=== PATIENT | female | born 1950 | race Caucasian/White ===

== ENCOUNTER 2016-09-08 21:06 | Emergency (ER) | payer OTHER ==
[2016-09-08 21:56] VITALS: RESP 16
[2016-09-08 22:40] VITALS: BP 126/92; PULSE 93; TEMP 97.5; O2SAT 95
--- NOTE | 2016-09-08 22:41 | EDPHY ---
H & P Time Seen by Provider: 09/08/16 21:51 HPI/ROS: HPI Right shoulder injury. 66-year-old female by private vehicle with her . This patient was playing tennis on Wednesday. She fell on an outstretched right hand. Since that time she has had continued and worsening right shoulder pain. Pain is aggravated by any passive or active movement. She also reports having some swelling to the right shoulder. She did not hit her head. She denies any neck pain. She denies any altered sensation or weakness in her extremities. No other complaint. She is right-hand dominant. ROS: Constitutional: No fever, no chills. No weakness. Musculoskeletal: No back pain. No neck pain. As above. Skin: No rashes. No lacerations or abrasions. Neurological: No headache. No focal weakness or altered sensation. Past medical history: Hypothyroid, hyperlipidemia, hypertension, x3. Social history: Nonsmoker. Here with her . Has a home in [place] as well as [place]. Is a former physical therapist. Physical Exam: General Appearance: Alert, no distress. This patient is responding to questions appropriately and in full sentences. This patient appears well- hydrated and well-nourished. Head: Normocephalic atraumatic. Face: Facial bones are stable on palpation. Eyes: Pupils equal and round and reactive to light, no pallor or injection. No lid erythema or edema. Right upper extremity exam: Significant for diffuse swelling over the anterior lateral aspects of the glenohumeral joint. No tenderness on palpation of the clavicle on the right side. She has tenderness on palpation of the proximal humerus. Pain with any passive or active movement of the right shoulder. The axillary nerve distribution is intact. The right upper extremity is intact. She describes also having some pain with movement of her elbow. She thinks however this is secondary to movement of the shoulder when she moves her elbow. The right elbow flexes and extends freely without any impingement. There is no pain elicited by pronation and supination. No tenderness over the radial head. No gross swelling of the right elbow. Neurological: Motor sensory function is intact. Cranial nerves are normal. Cerebellar function intact. Skin: Warm and dry, no rashes. No lacerations, abrasions or contusions. Musculoskeletal: Neck is supple and nontender. The trachea is midline. No midline cervical, thoracic, lumbar or sacral tenderness on palpation. No flank tenderness on palpation. Extremities are symmetrical, full range of motion except noted. All joints in the bilateral upper and bilateral lower extremities range without pain or impingement except noted. No tenderness on palpation of the long bones in the bilateral upper and bilateral lower extremities except noted. Psychiatric: No agitation. No depression. Database: EKG: Imaging: Right elbow x-ray series: Negative for fracture, subluxation, dislocation. Interpreted by me. Right shoulder x-ray series: Significant for a transfer proximal humerus fracture with mild displacement. The glenohumeral joint appears intact but the joint space appears widened suggesting a rotator cuff type injury. Interpreted by me. Procedures: Emergency department course: Results of her x-rays and diagnosis of proximal humerus fracture discussed with her. She was offered pain medication in the emergency department but she declined. She was placed in a shoulder sling. Plan will be to have her follow up with Orthopedics in the next 1-2 days for re-evaluation and further management. She declines any narcotic pain medication but excepted a prescription to have on hand if she needs it. I discussed ibuprofen dosing with her. She feels comfortable going home with her . Follow-up and return to emergency department precautions reviewed. All of her questions were answered. She was discharged from the emergency department in good condition. Differential Diagnosis: The differential diagnosis on this patient includes but is not limited to glenohumeral joint dislocation, rotator cuff injury, proximal humerus fracture. This represents a partial list of diagnoses considered. These considerations are based on history, physical exam, past history, reassessment and diagnostic testing. Smoking Status: Never smoked Constitutional: Initial Vital Signs Temperature (C) 36.6 C 09/08/16 21:20 Heart Rate 100 09/08/16 21:20 Respiratory Rate 16 09/08/16 21:20 Blood Pressure 145/94 H 09/08/16 21:20 O2 Sat (%) 93 09/08/16 21:20 O2 Delivery Mode Room Air Allergies/Adverse Reactions: No Known Allergies Allergy (Unverified 09/08/16 21:47) Home Medications: Medication Instructions Recorded Hydrocodone/APAP 5/325 [[place] 1 - 2 tab PO Q4-6PRN PRN #20 tab 09/08/16 5/325 (*)] Levothyroxine [Synthroid 100 mcg 09/08/16 (*)] Lipitor 09/08/16 Losartan Potassium [Cozaar 25 mg 09/08/16 (*)] Departure - Departure Disposition: Home, Routine, Self-Care Clinical Impression: Fracture, humerus closed Condition: Good Instructions: Proximal Humerus Fracture (ED) Additional Instructions: Read and follow provided instructions. Follow-up with your senior design engineering specialist or the 1 I have provided you in the next 2-3 days for re-evaluation and to discuss management options. Ibuprofen dosin mg every 6 hours with meals for the next 3 days only. [place]/Percocet dosin-2 every 4-6 hours for [address] Do not drive on this medication. Return to the emergency department for worsening or uncontrolled pain, loss of sensation or weakness in your right upper extremity, discoloration, or other serious concerns. Referrals: Rojas Frazier MD [Medical Doctor] - As per Instructions Prescriptions: Hydrocodone/APAP 5/325 [[place] 5/325 (*)] 1 - 2 tab PO Q4-6PRN PRN #20 tab PRN Reason: Pain, Moderate
== END 2016-09-08 22:47 | disposition home or self-care (01) ==
LOC: CED 21:06
DX: S42.291A Other displaced fracture of upper end of right humerus, initial encounter for closed fracture (principal); I10 Essential (primary) hypertension; W18.39XA Other fall on same level, initial encounter; Y99.8 Other external cause status; Y93.73 Activity, racquet and hand sports
CPT/HCPCS: 73030; 73080; 99283; A4565

== ENCOUNTER → 2016-09-23 | Outpatient (CLI) | payer OTHER | LOC: CIMAGING 10:28 | PROVIDERS: ATTEND Physician Assistant | DX: S42.291D Other displaced fracture of upper end of right humerus, subsequent encounter for fracture with routine healing (principal) | CPT/HCPCS: 73030-PO ==